=== PATIENT | female | born 1940 | race Caucasian/White ===

== ENCOUNTER 2018-03-13 10:04 | Emergency (ER) | payer OTHER, MEDICARE ==
[2018-03-13 10:26] VITALS: BP 157/85
--- NOTE | 2018-03-13 10:27 | EDPHY ---
H & P Time Seen by Provider: 03/13/18 10:06 HPI/ROS: Chief Complaint: UTI symptoms HPI: 77-year-old woman with a history of multiple myeloma, currently in remission, presenting with 3 days of urinary urgency and frequency and dysuria. No fevers or chills. No back pain. No nausea or vomiting. No hematuria. She has had urinary tract infections in the past. She is currently visiting from [place]. ROS: 10 systems were reviewed and were negative except those elements noted in the HPI. PMH: Multiple myeloma Social History: No smoking, no alcohol, no recreational drug use Family History: non-contributory Physical Exam: Gen: Awake, Alert, No Distress HEENT: Nose: no rhinorrhea Eyes: PERRLA, EOMI Mouth: Moist mucosa Neck: Supple, no JVD Chest: nontender, lungs clear to auscultation Heart: S1, S2 normal, no murmur Abd: Soft, non-tender, no guarding Back: no CVA tenderness, no midline tenderness Ext: no edema, non-tender Skin: no rash Neuro: CN II-XII intact, Sensation grossly intact, Strength 5/5 in bilateral upper and lower extremities Home Medications: Medication Instructions Recorded Aspirin 81mg (*) 03/13/18 Nitrofurantoin Monohyd/M-Cryst 100 mg PO BID #10 capsule 03/13/18 [Macrobid 100 mg Capsule] Medical Decision Making ED Course/Re-evaluation: 77-year-old woman with symptoms consistent with an uncomplicated UTI. Will treat her with Macrobid. She will follow up with primary care when she returns home to [place] next Thursday. Departure - Departure Disposition: Home, Routine, Self-Care Clinical Impression: Urinary tract infection Condition: Good Instructions: Urinary Tract Infection in Women (ED) Additional Instructions: Please take your full course of antibiotics. Follow up with primary care physician if symptoms have not improved in 4-5 days. Return to the emergency department for worsening abdominal pain, back pain, fevers or chills, vomiting, or any other concerns. Referrals: NONE *PRIMARY CARE P,. [Primary Care Provider] - As per Instructions Prescriptions: Nitrofurantoin Monohyd/M-Cryst [Macrobid 100 mg Capsule] 100 mg PO BID #10 capsule
== END 2018-03-13 10:35 | disposition home or self-care (01) ==
LOC: CED 10:04
DX: N39.0 Urinary tract infection, site not specified (principal)